=== PATIENT | female | born 1960 | race Caucasian/White ===

== ENCOUNTER → 2016-09-18 | Outpatient (CLI) | payer BC ==
[~2016-09-18] MED LIST: ASCO10003 PO; BUPR75TA8 PO; CHOL1000 PO; DULO60CA44 PO; MELO15TA4 PO; NABU500T PO; NABU500T3 PO; RANI150T3 PO; TRAM-10 PO; TRAZ50TA35 PO; TURM1CAP4 PO
--- NOTE | 2016-09-18 08:54 | DIAGNOSTIC IMAGING REPORT ---
ULTRASOUND RIGHT UPPER QUADRANT ABDOMEN CLINICAL HISTORY: Right upper quadrant abdominal pain. Chronic diarrhea. COMPARISON STUDY: No priors. TECHNIQUE: Real-time, grayscale, and color flow sonography of the right upper quadrant of the abdomen was performed. Images are reviewed in the transverse and longitudinal planes. FINDINGS: Liver: The liver is normal in size and echotexture. There is no intrahepatic biliary ductal dilatation. The main portal vein is patent. Gallbladder: The gallbladder is surgically absent. The common bile duct measures up to 0.6 cm in diameter. Pancreas: Visualized portions of the pancreatic head and body are normal in appearance. The splenic vein is patent. Right kidney: Survey images of the right kidney demonstrate normal size and echotexture. There is no hydronephrosis. Ascites: None. IMPRESSION: Unremarkable sonographic assessment of the right upper quadrant noting status post cholecystectomy. Electronically signed by: Neville Morales M.D. 09/18/2016 8:52 AM Dictated Date/Time: 09/18/2016 8:51 AM
== END | disposition home or self-care (01) ==
LOC: C.ULTR 08:29
PROVIDERS: ATTEND Family Medicine
DX: R10.11 Right upper quadrant pain (principal); K52.9 Noninfective gastroenteritis and colitis, unspecified

== ENCOUNTER → 2016-10-14 | Outpatient (CLI) | payer BC | END | disposition home or self-care (01) | LOC: C.RDSM 14:55 | PROVIDERS: ATTEND Family Medicine | DX: M54.5 Low back pain (principal) ==

== ENCOUNTER → 2016-10-21 | Outpatient (CLI) | payer BC ==
[~2016-10-21] MED LIST changes: +MAGN400T6 PO
--- NOTE | 2016-10-21 12:07 | DIAGNOSTIC IMAGING REPORT ---
MRI LUMBAR SPINE W/O CONTRAST CLINICAL HISTORY: Low back pain, unresponsive to physical therapy TECHNIQUE: Sagittal and axial T1, T2 and STIR images were obtained. COMPARISON STUDY: Conventional radiographic evaluation the lumbar spine dated 10/14/2016 OBSERVATIONS: There is heterogeneous marrow, most consistent with degenerative endplate signal change. L1-2: No disc protrusions or extrusions. No evidence of spinal canal or neural foraminal compromise. L2-3: There is a circumferential disc bulge in association with a small right foraminal disc protrusion. There is mild spinal canal narrowing. There is mild right-sided foraminal narrowing. L3-4: There is a broad-based disc osteophyte complex. There is mild spinal stenosis. There is mild bilateral subforaminal narrowing. There is facet joint arthropathy. L4-5: There is a circumferential disc bulge. There is mild spinal stenosis. There is no significant foraminal narrowing. L5-S1: There is a circumferential disc bulge present. There is facet joint arthropathy. There is no significant spinal stenosis. There is mild bilateral foraminal narrowing. The conus medullaris and cauda equina appear normal. IMPRESSION: 1. Moderately advanced multilevel spondylitic changes 2. Multilevel disc bulges with mild spinal stenosis at the L2-3, L3-4, and L4-5 levels. 3. Small right foraminal disc protrusion at the L2-3 level. Electronically signed by: Albino Ferguson M.D. 10/21/2016 12:06 PM Dictated Date/Time: 10/21/2016 12:00 PM
== END | disposition home or self-care (01) ==
LOC: C.MRIBC 11:10
PROVIDERS: ATTEND Family Medicine
DX: M54.5 Low back pain (principal)

== ENCOUNTER → 2016-11-05 | Outpatient (CLI) | payer BC ==
--- NOTE | 2016-11-05 15:54 | DIAGNOSTIC IMAGING REPORT ---
RIGHT HAND MIN 3 VIEWS ROUTINE CLINICAL HISTORY: M25.50 Polyarthralgia Right COMPARISON: None. DISCUSSION: Mild degenerative change of the intercarpal as well as carpometacarpal joints. Moderate degenerative change first carpometacarpal joint. Moderate degenerative change interphalangeal joints throughout. There is no evidence for soft tissue swelling. IMPRESSION: Moderate generalized degenerative change. Electronically signed by: Lv Pugh M.D. 11/05/2016 3:52 PM Dictated Date/Time: 11/05/2016 3:51 PM
--- NOTE | 2016-11-05 15:54 | DIAGNOSTIC IMAGING REPORT ---
RIGHT WRIST MIN 3 VIEWS ROUTINE CLINICAL HISTORY: Polyarthralgia COMPARISON: None. DISCUSSION: No fractures are visualized. There are no dislocations. There is no erosive disease. There are mild osteoarthritic changes at the level of the first carpal metacarpal joint. IMPRESSION: 1. Mild degenerative change 2. No evidence of erosive disease 3. No evidence of fracture Electronically signed by: Albino Ferguson M.D. 11/05/2016 3:52 PM Dictated Date/Time: 11/05/2016 3:51 PM
--- NOTE | 2016-11-05 15:59 | DIAGNOSTIC IMAGING REPORT ---
LEFT WRIST MIN 3 VIEWS ROUTINE CLINICAL HISTORY: M25.50 Polyarthralgia COMPARISON STUDY: None. FINDINGS: No fracture or dislocation within the left wrist. Soft tissues are unremarkable. Moderate osteoarthritis at the first carpal carpometacarpal joint demonstrated by cartilage space narrowing and marginal osteophytes. Bone mineralization is intact. No erosions identified. IMPRESSION: Moderate osteoarthritis at the first carpometacarpal joint. Electronically signed by: Shine Barrios M.D. 11/05/2016 3:57 PM Dictated Date/Time: 11/05/2016 3:52 PM
[2016-11-05 16:46] LABS: C-REACTIVE PROTEIN 0.39 mg/dl (0-0.29); RHEUMATOID FACTOR < 10.0 U/mL (0-15); TOTAL IRON BINDING CAPACITY 319 mcg/dl (250-450)
[2016-11-11 02:35] LABS: ANTI-CENTROMERE AB <1.0 NEG AI (<1.0 NEG); ANTI-SS-A <1.0 NEG AI (<1.0 NEG); ANTI-SS-B <1.0 NEG AI (<1.0 NEG); DNA ds CRITHIDIA NEGATIVE (NEGATIVE); Sm Antibody <1.0 NEG AI (<1.0 NEG)
== END | disposition home or self-care (01) ==
LOC: C.RAD1850 14:52
PROVIDERS: ATTEND Internal Medicine Rheumatology
DX: M22.41 Chondromalacia patellae, right knee (principal); M22.42 Chondromalacia patellae, left knee; M25.531 Pain in right wrist; M25.541 Pain in joints of right hand; M25.542 Pain in joints of left hand; M19.032 Primary osteoarthritis, left wrist

== ENCOUNTER → 2017-02-13 | Day surgery (SDC) | payer BC ==
[2017-02-07 11:48] VITALS: Ht 165.1 cm; Wt 81.4 kg
[~2017-02-13] VITALS: Ht 165.1 cm; Wt 81.4 kg
[~2017-02-13] MED LIST changes: +BUPIVACAINE 0.25% 2.5MG/ML PF 10 ML VIAL ONE; +LIDOCAINE HCL 1% MPF 5 ML VIAL ONE; -NABU500T PO
--- NOTE | 2017-02-13 14:19 | History & Physical Bridge - SC ---
H&P Re-Evaluation Bridge Note: I have examined the patient, reviewed the History & Physical and in the interval since the performance of the History & Physical I have noted the following changes of clinical significance: No changes noted
[2017-02-13 14:39] VITALS: BP 147/86; PULSE 86; O2SAT 98
--- NOTE | 2017-02-13 14:44 | Discharge Instructions ---
Discharge Instructions Date of Service Feb 13, 2017. Visit Reason for Visit: Right Sided Low Back Pain Discharge Discharge Diagnosis / Problem: low back pain Discharge Goals Goal(s): Decrease discomfort, Improve function Activity Recommendations Activity Limitations: resume your previous activity Anesthesia . Post Anesthesia Instructions: If you have had General Anesthesia or IV Sedation: * Do not drive today. * Resume driving when surgeon permits. * Do not make important decisions or sign legal documents today. * Call surgeon for: 1. Temperature elevations greater than 101 degrees F. 2. Uncontrollable pain. 3. Excessive bleeding. 4. Persistent nausea and vomiting. 5. Medication intolerance (nausea, vomiting or rash). * For nausea and vomiting use only clear liquids such as: tea, soda, bouillon until nausea subsides, then gradually increase diet as tolerated. * If you have any concerns or questions, call your surgeon's office. If physician is unavailable and it is an emergency, call 911 or go to the nearest emergency room. . Diet Recommendations Recommended Home Diet: resume previous diet Procedures Procedures Performed: RIGHT L5-S1 MEDIAL BRANCH BLOCK Pending Studies Studies pending at discharge: no Medical Emergencies . Who to Call and When: Medical Emergencies: If at any time you feel your situation is an emergency, please call 911 immediately. . Non-Emergent Contact Non-Emergency issues call your: Specialist . . "Provider Documentation" section prepared by Antony Mazariegos. .
--- NOTE | 2017-02-13 16:05 | OPERATIVE REPORT ---
DATE OF OPERATION: 02/13/2017 PREOPERATIVE DIAGNOSIS: Chronic low back pain, right L5-S1 facet arthropathy. POSTOPERATIVE DIAGNOSIS: Same. PROCEDURE: Right L5-S1 medial branch blocks under fluoroscopic guidance. INDICATIONS FOR PROCEDURE: The patient is a 56-year-old white female who presents today for medial branch block. She had one done previously that produced 80% relief. She presents to have the second one done to follow the protocol of her insurer prior to proceeding with potential denervation procedure. PHYSICAL EXAMINATION: Pleasant female seated comfortably. She has point tenderness to palpation in the right L5-S1 facet area which is worse with extension, rotation, lower extremity strength is unchanged. CONSENT: Verbal and written consent was obtained from the patient. Risks and benefits were reviewed. Risks include but are not limited to abscess and allergic reaction. The patient wishes to proceed. DESCRIPTION OF PROCEDURE: The patient was taken back in the special procedures room of the [facility] where she was maintained in a prone position. Backside was cleansed with Betadine x3 and a dry sterile dressing was applied. Fluoroscope was used to identify the L5 transverse process junction and the sacral ala on the right side. The overlying skin was anesthetized with 2.5 mL of lidocaine 1% at each site with a 25-gauge 1.5-inch needle. A 25-gauge 3.5-inch spinal needle was then directed under fluoroscopic guidance contacting the bony targets at each site. She then underwent injection after negative aspiration of 1 mL of bupivacaine 0.25% at each site. Injections were well tolerated. DISPOSITION: 1. The patient is taken out into the discharge recovery area where she will be discharged home once discharge criteria have been met. 2. Follow up in the [facility] Medicine office in 2-4 weeks. I attest to the content of the Intraoperative Record and any orders documented therein. Any exception s are noted below.
== END | disposition home or self-care (01) ==
LOC: X.SURG 13:42
PROVIDERS: ATTEND Physical Medicine & Rehabilitation
DX: M54.5 Low back pain (principal); M47.817 Spondylosis without myelopathy or radiculopathy, lumbosacral region; G89.29 Other chronic pain

== ENCOUNTER → 2017-04-30 | Day surgery (SDC) | payer BC ==
[2017-04-16 07:45] VITALS: Ht 165.1 cm; Wt 81.4 kg
[~2017-04-30] VITALS: Ht 165.1 cm; Wt 81.4 kg
[~2017-04-30] MED LIST changes: +LIDOCAINE HCL 1% 20 ML VIAL ONE; -LIDOCAINE HCL 1% MPF 5 ML VIAL ONE; -RANI150T3 PO
--- NOTE | 2017-04-30 14:29 | Discharge Instructions ---
Discharge Instructions Date of Service Apr 30, 2017. Visit Reason for Visit: Low Back Pain Discharge Discharge Diagnosis / Problem: low back pain Discharge Goals Goal(s): Decrease discomfort, Improve function Activity Recommendations Activity Limitations: resume your previous activity Anesthesia . Post Anesthesia Instructions: If you have had General Anesthesia or IV Sedation: * Do not drive today. * Resume driving when surgeon permits. * Do not make important decisions or sign legal documents today. * Call surgeon for: 1. Temperature elevations greater than 101 degrees F. 2. Uncontrollable pain. 3. Excessive bleeding. 4. Persistent nausea and vomiting. 5. Medication intolerance (nausea, vomiting or rash). * For nausea and vomiting use only clear liquids such as: tea, soda, bouillon until nausea subsides, then gradually increase diet as tolerated. * If you have any concerns or questions, call your surgeon's office. If physician is unavailable and it is an emergency, call 911 or go to the nearest emergency room. . Diet Recommendations Recommended Home Diet: resume previous diet Procedures Procedures Performed: RIGHT L5-S1 RADIO FREQUENCY DENERVATION. Pending Studies Studies pending at discharge: no Medical Emergencies . Who to Call and When: Medical Emergencies: If at any time you feel your situation is an emergency, please call 911 immediately. . Non-Emergent Contact Non-Emergency issues call your: Specialist . . "Provider Documentation" section prepared by Antony Mazariegos. .
[2017-04-30 14:41] VITALS: BP 134/89; PULSE 76; TEMP 36.6; O2SAT 96
--- NOTE | 2017-04-30 17:47 | OPERATIVE REPORT ---
DATE OF OPERATION: 04/30/2017 PREOPERATIVE DIAGNOSIS: Chronic low back pain, right L5-S1 facet arthropathy. POSTOPERATIVE DIAGNOSIS: Same. PROCEDURE: Right L5-S1 radiofrequency denervation procedure. INDICATIONS: The patient is a 56-year-old white female that underwent a series of 2 medial branch blocks done at L5-S1 that were both positive and diagnostic. She returns today for denervation to provide her with a longer lasting relief of pain. PHYSICAL EXAMINATION: GENERAL: Pleasant female seated comfortably, in no apparent distress. MUSCULOSKELETAL: She has some point tenderness to palpation of her right L5-S1 facet area. She had increased pain with extension. She had no problems with flexion. She had normal lower extremity strength. Negative seated straight leg raises. CONSENT: Verbal and written consent was obtained from patient. Risks and benefits were reviewed. Risks include but are not limited to abscess, allergic reaction and denervation. She wishes to proceed. PROCEDURE: The patient was taken back to the special procedures room of [facility] where she was maintained in prone position. Backside was cleansed with Betadine x3 and a dry sterile dressing was applied. Fluoroscope was used to identify the right L5 transverse process junction and the right sacral ala. The overlying skin was anesthetized with 2.5 mL of lidocaine 1% at each site with a 25 gauge 1.5-inch needle, and a 22 gauge 10 cm Nokomis needle was placed at each site contacting bone. It was sensory stimulated first at L5, then at the sacral ala, and sensory stimulation reproduced familiar pain and pressure in the sites at a level of 0.2 at the L5 transverse process and 0.1 volts at the sacral ala. The sites were then motor stimulated and provoked localized spasms, but nothing radiating down the leg or twitching of the foot or distal leg. She then underwent injection after negative aspiration of 1 mL of lidocaine 1% at each site and underwent radiofrequency denervation 100 seconds, 80 degrees x2 at each site and then this was followed by bupivacaine 0.25% 1 mL at each site. Procedure was well tolerated throughout and she will follow up in the office in 2-4 weeks. I attest to the content of the Intraoperative Record and any orders documented therein. Any exception s are noted below.
== END | disposition home or self-care (01) ==
LOC: X.SURG 12:58
PROVIDERS: ATTEND Physical Medicine & Rehabilitation
DX: M53.87 Other specified dorsopathies, lumbosacral region (principal)

== ENCOUNTER → 2017-09-12 | Day surgery (SDC) | payer OTHER ==
[2017-09-08 12:16] VITALS: Ht 167.6 cm; Wt 80.9 kg
[~2017-09-12] VITALS: Ht 167.6 cm; Wt 80.9 kg
[~2017-09-12] MED LIST changes: -ASCO10003 PO; +ATROPINE SULFATE 0.1 MG/ML 5ML SYR IV PRN; -BUPIVACAINE 0.25% 2.5MG/ML PF 10 ML VIAL ONE; +BUPIVACAINE/EPINEPHRINE 0.5% MPF 1:200,000 30 ML VIAL ONE; +CEFAZOLIN 2000MG IV PUSH 15 ML IV SCH; +EpHEDrine SULFATE INJ 50 MG/ML AMP IV PRN; +FENTANYL CITRATE INJ 50 MCG/1 ML 2 ML VIAL ONE; +LACTATED RINGER'S 1000ML 1,000 ML IV SCH; +LIDOCAINE HCL 2% 2 ML VIAL (20MG/ML) ONE; -MAGN400T6 PO; -MELO15TA4 PO; +MIDAZOLAM HCL 1 MG/ML 2ML VIAL ONE; +MoRPHine SULFATE 2 MG/ML CARP IV PRN; +MoRPHine SULFATE 4 MG/ML 1 ML CARP\\VIAL IV PRN; -NABU500T3 PO; +ONDANSETRON INJ 2 MG/ML 2 ML VIAL IV PRN; +ONDANSETRON INJ 2 MG/ML 2 ML VIAL ONE; +OXYCODONE/ACETAMINOPHEN 5-325 TAB PO PRN; +PIRO20CA PO; +PROPOFOL IV EMULSION 10 MG/ML 20 ML VIAL IV ONE; -TRAM-10 PO; -TURM1CAP4 PO
--- NOTE | 2017-09-12 08:41 | [facility] Post Operative Brief Note ---
Immediate Operative Summary Operative Date Sep 12, 2017. Pre-Operative Diagnosis Right Ring Trigger Finger Post-Operative Diagnosis Same Procedure(s) Performed Right Ring Trigger Finger Release Surgeon Dr. Appiah Msw Surgeon(s) Stephanie Cuellar, Fellow Estimated Blood Loss 7 ML Findings Consistent with Post-Op Diagnosis Fluids (cc crystalloids) 900 Specimens None Drains None Anesthesia Type MAC Complication(s) none Disposition Disposition: Recovery Room / PACU (Stable)
--- NOTE | 2017-09-12 08:43 | Discharge Instructions-SurgCtr ---
Discharge Instructions Date of Service Sep 12, 2017. Visit Reason for Visit: Right Ring Trigger Finger Discharge Discharge Diagnosis / Problem: Status post Right Ring Finger Trigger finger release Discharge Goals Goal(s): Decrease discomfort, Improve function, Increase independence Activity Recommendations Activity Limitations: per Instructions/Follow-up section Shower/Bathe: may shower/bathe in 3 days Anesthesia . Post Anesthesia Instructions: If you have had General Anesthesia or IV Sedation: * Do not drive today. * Resume driving when surgeon permits. * Do not make important decisions or sign legal documents today. * Call surgeon for: 1. Temperature elevations greater than 101 degrees F. 2. Uncontrollable pain. 3. Excessive bleeding. 4. Persistent nausea and vomiting. 5. Medication intolerance (nausea, vomiting or rash). * For nausea and vomiting use only clear liquids such as: tea, soda, bouillon until nausea subsides, then gradually increase diet as tolerated. * If you have any concerns or questions, call your surgeon's office. If physician is unavailable and it is an emergency, call 911 or go to the nearest emergency room. . Instructions / Follow-Up Instructions / Follow-Up Dr. Appiah in 10-15 days. PT in 3-5 days. Diet Recommendations Home Diet: resume previous diet Procedures Procedures Performed: Right Ring Trigger Finger Release Pending Studies Studies pending at discharge: no Medical Emergencies . Who to Call and When: Medical Emergencies: If at any time you feel your situation is an emergency, please call 911 immediately. . Non-Emergent Contact Non-Emergency issues call your: Surgeon Call Non-Emergent contact if: temperature is above 101.5, your pain is not controlled, wound has increased drainage, wound has increased redness . . "Provider Documentation" section prepared by Lee Appiah. .
--- NOTE | 2017-09-12 08:44 | [facility] Operative Report ---
Operative Report Operative Date Sep 12, 2017. Pre-Operative Diagnosis Right Ring Trigger Finger Post-Operative Diagnosis Same Procedure(s) Performed Right Ring Trigger Finger Release Surgeon Dr. Appiah Cargo Mate Surgeon(s) Stephanie Cuellar, Fellow Estimated Blood Loss 7 ML Findings Thickened A1 alva and adhesions between Right ring finger flexor tendons. Fluids 900 Specimens None Drains None Anesthesia Type MAC Complication(s) none Disposition Recovery Room / PACU (Stable) Indications The patient is a 57 year old female with a painful right trigger ring finger that has not responded to conservative treatment. The patient understands the risks of surgery, which include but are not limited to: bleeding, infection, re- operation, damage to nerves and arteries, and continued pain. The patient understands all of these instructions and explanations, all of their questions have been satisfactorily addressed. The patient has elected to proceed with surgery and the informed consent was signed. Description of Procedure The patient was taken to the Operating Room and placed in the supine position on the operating table. After a multidisciplinary time-out was performed identifying my initials on the right ring finger as the correct and operative limb, the patient agreed. Prior to the incision being made, 2 grams of intravenous Ancef were given. The right arm was prepped and draped in the usual Orthopaedic sterile fashion. The volar aspect of the metacarpal head for the right ring finger digital nerve block was performed with 6 cc of a 50:50 mix of 1% Lidocaine with epinephrine and 0.5% Bupivacaine plain. The above mixture was injected along the planned incision. After the local anesthetic had taken affect, a small 1.5 cm incision was made along her snow crease. This was carried down to the A1 alva of the right ring finger. The A1 alva was incised and a small portion was excised. The right angle clamp was used to deliver the flexor tendons into the wound. There were some adhesions noted along the flexor tendons and between them. These were removed with tenotomies. The tendon then glided without catching or locking. The patient was asked to move flex her fingers and there was no catching or locking. The wound and tendon sheath were copiously irrigated. The skin was closed with 4-0 Nylon. The incision was covered with Xeroform, 4x4's, sterile cast padding and an MERCEDEZ. The sponge and needle counts were correct. I attest to the content of the Intraoperative Record and any orders documented therein. Any exceptions are noted below.
[2017-09-12 08:51] VITALS: TEMP 36.4
--- NOTE | 2017-09-12 09:31 | Anesthesia Progress Nt - [facility] ---
Anesthesia Post Op Note Date & Time Sep 12, 2017 at 09:30 Vital Signs Pain Intensity: 0 Vital Signs Past 12 Hours Date Time Temp Pulse Resp B/P (MAP) Pulse Ox O2 Delivery O2 Flow Rate FiO2 09/12/17 09:22 76 16 111/71 (84) 97 Room Air 09/12/17 08:51 36.4 81 16 117/76 (90) 95 Room Air 09/12/17 07:14 36.9 80 18 116/83 (94) 100 Room Air Notes Mental Status: alert / awake / arousable, participated in evaluation Pt Amnestic to Procedure: Yes Nausea / Vomiting: adequately controlled Pain: adequately controlled Airway Patency, RR, SpO2: stable & adequate BP & HR: stable & adequate Hydration State: stable & adequate Anesthetic Complications: no major complications apparent
[2017-09-12 09:43] VITALS: BP 126/85; PULSE 76; O2SAT 97
== END | disposition home or self-care (01) ==
LOC: X.SURG 07:03
PROVIDERS: ATTEND Orthopaedic Surgery Sports Medicine
DX: M65.341 Trigger finger, right ring finger (principal); G47.33 Obstructive sleep apnea (adult) (pediatric); F32.9 Major depressive disorder, single episode, unspecified; M19.90 Unspecified osteoarthritis, unspecified site; E66.9 Obesity, unspecified; Z68.29 Body mass index [BMI] 29.0-29.9, adult; Z79.899 Other long term (current) drug therapy; Z88.0 Allergy status to penicillin; Z88.8 Allergy status to other drugs, medicaments and biological substances; F17.200 Nicotine dependence, unspecified, uncomplicated; Z90.89 Acquired absence of other organs; Z90.49 Acquired absence of other specified parts of digestive tract; Z98.890 Other specified postprocedural states; Z80.3 Family history of malignant neoplasm of breast; Z80.0 Family history of malignant neoplasm of digestive organs

== ENCOUNTER → 2017-10-02 | Day surgery (SDC) | payer OTHER ==
[2017-09-30 10:28] VITALS: Ht 167.6 cm; Wt 80.9 kg
[~2017-10-02] VITALS: Ht 167.6 cm; Wt 80.9 kg
[~2017-10-02] MED LIST changes: -ATROPINE SULFATE 0.1 MG/ML 5ML SYR IV PRN; +BUPIVACAINE 0.25% 2.5MG/ML PF 10 ML VIAL ONE; -BUPIVACAINE/EPINEPHRINE 0.5% MPF 1:200,000 30 ML VIAL ONE; -CEFAZOLIN 2000MG IV PUSH 15 ML IV SCH; -EpHEDrine SULFATE INJ 50 MG/ML AMP IV PRN; -FENTANYL CITRATE INJ 50 MCG/1 ML 2 ML VIAL ONE; +IOPAMIDOL INJ 61% 15 ML VIAL ONE; -LACTATED RINGER'S 1000ML 1,000 ML IV SCH; -LIDOCAINE HCL 1% 20 ML VIAL ONE; +LIDOCAINE HCL 1% MPF 5 ML VIAL ONE; -LIDOCAINE HCL 2% 2 ML VIAL (20MG/ML) ONE; -MIDAZOLAM HCL 1 MG/ML 2ML VIAL ONE; -MoRPHine SULFATE 2 MG/ML CARP IV PRN; -MoRPHine SULFATE 4 MG/ML 1 ML CARP\\VIAL IV PRN; -ONDANSETRON INJ 2 MG/ML 2 ML VIAL IV PRN; -ONDANSETRON INJ 2 MG/ML 2 ML VIAL ONE; -OXYCODONE/ACETAMINOPHEN 5-325 TAB PO PRN; -PROPOFOL IV EMULSION 10 MG/ML 20 ML VIAL IV ONE
--- NOTE | 2017-10-02 14:11 | [facility] Post Operative Brief Note ---
Immediate Operative Summary Operative Date Oct 02, 2017. Pre-Operative Diagnosis Right sacroiliitis; history of lumbar facet denervation, improved at L5-S1. Post-Operative Diagnosis Same Procedure(s) Performed Right Sacroiliac Joint Injection Surgeon Dr Antony Mazariegos Training And Development Manager Surgeon(s) None Estimated Blood Loss 0 Findings Consistent with Post-Op Diagnosis Specimens NA Drains None Anesthesia Type Local Complication(s) none Disposition Disposition:
--- NOTE | 2017-10-02 14:12 | Discharge Instructions ---
Discharge Instructions Date of Service Oct 02, 2017. Visit Reason for Visit: Sacroiliitis Discharge Discharge Diagnosis / Problem: Low back pain Discharge Goals Goal(s): Decrease discomfort, Improve function Activity Recommendations Activity Limitations: resume your previous activity Anesthesia . Post Anesthesia Instructions: If you have had General Anesthesia or IV Sedation: * Do not drive today. * Resume driving when surgeon permits. * Do not make important decisions or sign legal documents today. * Call surgeon for: 1. Temperature elevations greater than 101 degrees F. 2. Uncontrollable pain. 3. Excessive bleeding. 4. Persistent nausea and vomiting. 5. Medication intolerance (nausea, vomiting or rash). * For nausea and vomiting use only clear liquids such as: tea, soda, bouillon until nausea subsides, then gradually increase diet as tolerated. * If you have any concerns or questions, call your surgeon's office. If physician is unavailable and it is an emergency, call 911 or go to the nearest emergency room. . Diet Recommendations Recommended Home Diet: resume previous diet Procedures Procedures Performed: Right Sacroiliac Joint Injection Pending Studies Studies pending at discharge: no Medical Emergencies . Who to Call and When: Medical Emergencies: If at any time you feel your situation is an emergency, please call 911 immediately. . Non-Emergent Contact Non-Emergency issues call your: Specialist . . "Provider Documentation" section prepared by Antony Mazariegos. .
[2017-10-02 14:13] VITALS: TEMP 36.6
--- NOTE | 2017-10-02 14:36 | OPERATIVE REPORT ---
DATE OF OPERATION: 10/02/2017 PREOPERATIVE DIAGNOSIS: Right sacroiliitis. POSTOPERATIVE DIAGNOSIS: Same. PROCEDURE: Right sacroiliac joint injection under fluoroscopic guidance. INDICATIONS: The patient is a 57-year-old female who had denervation done and did really well, then she started to notice pain below the level of the denervation was localizing to the right sacroiliac joint. The pain can be debilitating at times getting as bad as 9/10, 5/10 currently. She presents today for an injection to provide her with relief of the SI joint pain. PHYSICAL EXAMINATION: Pleasant female seated comfortably. She has point tenderness to palpation of the right SI joint, positive Chaitanya test. No problems with flexion. She has normal lower extremity strength with positive Garret maneuver on the right. Positive sacral compression, negative sacral distraction maneuver. CONSENT: Verbal and written consent was obtained from the patient. Risks and benefits were reviewed. Risks include but are not limited to abscess and allergic reaction. The patient wishes to proceed. DESCRIPTION OF PROCEDURE: The patient was taken back to the special procedures room of the [facility] where she was maintained in a prone position. Backside was cleansed with Betadine x3 and a dry sterile dressing was applied. Fluoroscope was used to identify the right SI joint. Overlying skin was anesthetized with 2.5 mL of lidocaine 1% with a 25 gauge 1.5-inch needle. A 25 gauge 3.5 inch spinal needle was then directed under fluoroscopic guidance into the joint. Isovue-300 contrast 0.25 mL was injected in showing intra-articular uptake. She then underwent injection after negative aspiration of 40 mg of Depo-Medrol and 1.5 mL of bupivacaine 0.25%. Injection was well tolerated. DISPOSITION: 1. The patient is taken out into the discharge recovery area where she will be discharged home once discharge criteria have been met. 2. Follow up in the [facility] Medicine office in 4 weeks' time. I attest to the content of the Intraoperative Record and any orders documented therein. Any exception s are noted below.
[2017-10-02 14:40] VITALS: BP 126/76; PULSE 73; O2SAT 99
== END | disposition home or self-care (01) ==
LOC: X.SURG 13:23
PROVIDERS: ATTEND Physical Medicine & Rehabilitation
DX: M46.1 Sacroiliitis, not elsewhere classified (principal)

== ENCOUNTER → 2017-10-14 | Outpatient (CLI) | payer OTHER ==
[~2017-10-14] MED LIST changes: -BUPIVACAINE 0.25% 2.5MG/ML PF 10 ML VIAL ONE; -IOPAMIDOL INJ 61% 15 ML VIAL ONE; -LIDOCAINE HCL 1% MPF 5 ML VIAL ONE
== END | disposition home or self-care (01) ==
LOC: C.RDSM 13:09
PROVIDERS: ATTEND Family Medicine
DX: M25.562 Pain in left knee (principal)

== ENCOUNTER → 2017-10-28 | Outpatient (CLI) | payer OTHER | END | disposition home or self-care (01) | LOC: C.RDSM 13:35 | PROVIDERS: ATTEND Physical Medicine & Rehabilitation | DX: M25.551 Pain in right hip (principal) ==

== ENCOUNTER → 2018-02-13 | Outpatient (CLI) | payer OTHER ==
--- NOTE | 2018-02-13 14:59 | DIAGNOSTIC IMAGING REPORT ---
SOFT TISS HEAD/NECK-THYROID CLINICAL HISTORY: 57 years-old Female with NON-TOXIC GOITER,UNSPECIFIED. Thyroid goiter COMPARISON: None available TECHNIQUE: Multiple real time sonographic images of the thyroid were obtained accessing yuen scale appearance and color doppler flow. FINDINGS: MEASUREMENTS: Right lobe: 4.1 x 1.7 x 1.5 cm Left lobe: 3.8 x 1.4 x 1.3 cm Isthmus: 0.2 cm PARENCHYMA: The thyroid parenchymal echotexture is homogeneous. NODULES: No discrete nodules are appreciated. IMPRESSION: Homogeneous appearance of the thyroid without discrete nodule identified. The above report was generated using voice recognition software. It may contain grammatical, syntax or spelling errors. Electronically signed by: Darius Pena M.D. 02/13/2018 2:57 PM Dictated Date/Time: 02/13/2018 2:56 PM
== END | disposition home or self-care (01) ==
LOC: C.ULTR 14:31
PROVIDERS: ATTEND Family Medicine
DX: E04.9 Nontoxic goiter, unspecified (principal)